=== PATIENT | female | born 2000 | race Hispanic/Latino ===

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

== ENCOUNTER 2020-01-26 20:30 | Emergency (ER) | payer OTHER | END 2020-01-26 22:29 | disposition home or self-care (01) | LOC: EDH 20:30 | DX: S83.004A Unspecified dislocation of right patella, initial encounter (principal); Z88.1 Allergy status to other antibiotic agents; X50.1XXA Overexertion from prolonged static or awkward postures, initial encounter; Y93.89 Activity, other specified; Y92.89 Other specified places as the place of occurrence of the external cause; Y99.9 Unspecified external cause status | CPT/HCPCS: 29505; 73562 ==

== ENCOUNTER 2020-03-03 05:06 | Emergency (ER) | payer OTHER ==
[2020-03-03] MEDS ORDERED: CEFTRIAXONE SODIUM 1 GM ONE (05:54)
[2020-03-03] MEDS ORDERED: ONDANSETRON ODT 4 MG TAB ONE (05:54)
[2020-03-03] MEDS ORDERED: LIDOCAINE HCL-MPF 1% 2ML VIAL ONE (05:54)
[2020-03-03] MEDS ORDERED: KETOROLAC TROMETHAMINE 60 MG/2 ML VIAL ONE (05:54)
== END 2020-03-03 06:13 | disposition home or self-care (01) ==
LOC: EDH 05:06
DX: N61.0 Mastitis without abscess (principal); Z88.1 Allergy status to other antibiotic agents; Z98.890 Other specified postprocedural states
CPT/HCPCS: 81025; 82948; 96372 ×2; 99284; J0696; J1885; J3490

== ENCOUNTER 2020-03-05 13:27 | Emergency (ER) | payer OTHER | END 2020-03-05 14:23 | disposition home or self-care (01) | LOC: EDH 13:27 | DX: Z48.00 Encounter for change or removal of nonsurgical wound dressing (principal); Z88.2 Allergy status to sulfonamides | CPT/HCPCS: 99281 ==

== ENCOUNTER → 2021-12-27 | Outpatient (CLI) | payer OTHER | END | disposition home or self-care (01) | LOC: RAH 11:05 | PROVIDERS: ATTEND Obstetrics & Gynecology | DX: R10.2 Pelvic and perineal pain (principal) | CPT/HCPCS: 76856 ==

== ENCOUNTER → 2022-01-24 | Outpatient (CLI) | payer OTHER ==
[2022-01-24 11:56] LABS: APPEARANCE,URINE Clear (CLEAR); BILIRUBIN,URINE Negative (NEGATIVE); COLOR,URINE Yellow (YELLOW); GLUCOSE, URINE (UA) Negative (NEGATIVE); KETONES,URINE Negative (NEGATIVE); LEUKOCYTE ESTERASE ,URINE Small (NEGATIVE); NITRATE,URINE Negative (NEGATIVE); OCCULT BLOOD,URINE Negative (NEGATIVE); PROTEIN,URINE Negative (NEGATIVE); UROBILINOGEN,URINE 0.2 mg/dL (0.2-1.0)
[2022-01-24 11:57] LABS: BASOPHILS % (AUTO) 0.3 % (0.0-5.0); EOSINOPHILS % (AUTO) 2.7 % (0.0-8.0); HEMATOCRIT 40.3 % (36-48); LYMPHOCYTES % (AUTO) 18.6 % (21.0-51.0); MEAN CORPUSCULAR HEMOGLOBIN 32.3 pg (27.0-33.0); MEAN CORPUSCULAR HGB CONC 34.5 g/dL (32.0-36.0); MEAN CORPUSCULAR VOLUME 93.5 fL (80-100); MONOCYTES % (AUTO) 7.5 % (3.0-13.0); NEUTROPHILS % (AUTO) 70.6 % (40.0-77.0); PLATELET COUNT (AUTO) 369 K/uL (130-400); RED BLOOD CELL COUNT(AUTO) 4.31 MIL/uL (4.00-5.50); RED CELL DISTRIBUTION WIDTH 12.1 % (11.0-15.5); WHITE BLOOD COUNT (AUTO) 7.7 K/uL (4.8-10.8)
[2022-01-24 12:15] LABS: BACTERIA,URINE Rare /HPF (None Seen); RBC,URINE None Seen /HPF (0-1); WBC,URINE 26-50 /HPF (0-1)
[2022-01-24 12:26] LABS: ALBUMIN 3.7 g/dL (3.5-5.0); BILIRUBIN,TOTAL 0.7 mg/dL (0.2-1.0); CREATININE 0.7 mg/dL (0.5-1.5); POTASSIUM 3.6 mmol/L (3.5-5.1); THYROID STIMULATING HORMONE 2.03 uIU/mL (0.36-3.74); TOTAL PROTEIN, SERUM 8.1 g/dL (6.0-8.3)
[2022-01-24 13:08] LABS: ERYTHROCYTE SEDIMENTATION RATE 36 MM/HR (0-20)
[2022-01-24 19:50] LABS: HEPATITIS B SURFACE ANTIGEN Non-Reactive (Negative)
[2022-01-24 21:19] LABS: HEPATITIS C ANTIBODY Non-Reactive (NEGATIVE)
[2022-01-25 10:59] LABS: RAPID PLASMA REAGIN NONREACTIVE (NONREACTIVE)
== END | disposition home or self-care (01) ==
LOC: LAB 10:00
PROVIDERS: ATTEND Nurse Practitioner Family
DX: I10 Essential (primary) hypertension (principal); R79.89 Other specified abnormal findings of blood chemistry; Z20.2 Contact with and (suspected) exposure to infections with a predominantly sexual mode of transmission
CPT/HCPCS: 36415; 80053; 80061; 81001; 82306; 84439; 84443; 85025; 85651; 86592; 86701; 87088; 87340; 87390; 87486; 87520; 87797

== ENCOUNTER 2025-02-16 17:34 | Emergency (ER) | payer OTHER ==
[~2025-02-16] VITALS: Ht 177.8 cm; Wt 104.3 kg
--- NOTE | 2025-02-16 17:40 | NUR ---
PT STATES WAS BITTEN BY PET CAT YESTERDAY, OCCURED AT [address], STATES CAT NOT VACCINATED
--- NOTE | 2025-02-16 17:44 | NUR ---
TC TO [facility], STATES WILL SEND OFFICER TO ER FOR REPORT
--- NOTE | 2025-02-16 17:49 | ERN ---
ED Note History of Present Illness Stated Complaint: LEFT HAND CAT BITE Chief Complaint: Animal Bite Time Seen by MD: 17:36 Time Seen by Midlevel: 17:36 Dictation: The patient is a healthy 24-year-old female with no significant medical history hand pain after she was bitten by her cat yesterday. Patient reports she cleaned her wound immediately after. Reports CT not up-to-date with vaccines. Patient reports being up-to-date with tetanus in the last three years. Patient denies any fevers. Allergies: Coded Allergies: sulfamethoxazole (Unverified Allergy, Unknown, 11/24/19) trimethoprim (Unverified Allergy, Unknown, 11/24/19) Home Meds Active Scripts Amoxicillin/Potassium Clav (Amox Tr-K Clv 875-125 mg Tab) 875 Mg-125 Mg Tablet, 1 TAB PO BID for 10 Days, #20 TAB 0 Refills Prov:NICOLE KOLB [employer] 02/16/25 Past Medical History Past Medical History: No Pertinent History Surgical History: Other Surgical History Other: RT KNEE LMP: February 10, 2025 RN Note Reviewed/Agreed w/PFSH: Yes Review of System Dictation Constitutional: Negative for fever,chills, and weight loss Eyes: Negative for injury, pain,redness, and discharge ENT: Negative for injury,pain or swelling Cardiovascular: Negative for chest pain, palpitations, and edema Respiratory: Negative for shortness of breath, cough, and wheezing, Abdomen/GI: Negative for abdominal pain, nausea, vomiting, diarrhea, and constipation Back: Negative for injury and pain : Negative for injury, bleeding and discharge MS/Extremity: Negative for injury and deformity Skin: Negative for rash, and discoloration positive for cat bite Neuro: Negative for headache, weakness, numbness, tingling, and seizure Psych: Negative for suicide ideation, homicidal ideation, and hallucinations Initial Vital Sign VS Vital Signs Date Time Temp Pulse Resp B/P (MAP) Pulse Ox O2 Delivery O2 Flow Rate FiO2 02/16/25 17:35 98.6 85 16 125/69 100 Room Air 0 Physical Exam Dictation Vital Signs reviewed General Appearance: Alert, oriented x 3, no acute distress, well developed, nourished. Head and Face: non-traumatic. Eyes: PERRL, pink conjunctivas, eyelid no trauma, anterior chamber with arcus senilis. Ears: Pinnas intact and no signs of trauma or erythema ear canals clear and no discharge TM no erythema Nose: No discharge, no bleeding. Oropharynx: Mouth normal, tongue pink. pharynx clear,no erythema, tonsils no exudates, no abscesses noted, mucous membrane moist Neck: Supple, non-tender, no thyromegaly, no masses, no JVD, no bruits Breast:Deferred Chest:No tenderness, no crepitus, no paradoxical movement, no retractions Lungs:Clear, well-ventilated, symmetric, no rales, no wheezing, no rhonchi, no stridor, good breath sounds bilaterally Heart: Regular rate, regular rhythm, no murmur, no gallops Vascular: no peripheral edema, Abdomen: Soft, positive bowel sounds, nondistended, no guarding, nontender, no rebound, no masses no hepatomegaly, no splenomegaly, no Price's sign, no hernias. Rectal: Deferred Genital: Deferred Neurological: Normal speech, motor function intact, sensory function intact Musculoskeletal: Neck nontender, full range of motion, back nontender, full range of motion, Extremities: nontender, full range of motion Skin: Color pink, dry, no turgor, no rash, no lacerations, no abrasions, no contusions. Small puncture wound to lateral aspect of dorsal left hand, scabbing noted, slight erythema surrounding by, no active bleeding, no discharge, mild swelling Lymphatic: Deferred Results (Laboratory/Radiology) Labs Reviewed?: Yes ED Course ED Course Orders Procedure Category Date Status Time *Nursing CPOE 02/16/25 Transmitted Communication: 17:44 Amox/Clav 875/125mg PHA 02/16/25 Complete Tab (Augmentin 875-1 18:00 Current Medications Medications (Trade) Dose Ordered Sig/Evangelist Route PRN Reason Start Time Stop Time Status Last Admin Dose Admin Amoxicillin/ Clavulanate Potassium (Augmentin 875-125 Tablet) 1 each ONCE ONCE PO 02/16/25 18:00 02/16/25 18:01 DC 02/16/25 18:02 Vital Signs Date Time Temp Pulse Resp B/P (MAP) Pulse Ox O2 Delivery O2 Flow Rate FiO2 02/16/25 17:35 98.6 85 16 125/69 100 Room Air 0 Medical Decision Making MDM The patient is a healthy 24-year-old female with no significant medical history hand pain after she was bitten by her cat yesterday. Patient reports she jamie aned her wound immediately after. Reports CT not up-to-date with vaccines. Patient reports being up-to-date with tetanus in the last three years. Patient denies any fevers. Patient with puncture wound to the left dorsal aspect of the hand, no drainage o r active bleeding. Slight erythema surrounding area. Patient is up-to-date with tetanus. We will be giving Augmentin for the treatment of cat bite. Animal control has also been notified to monitor patient's Cat. On physical exam patient is in no acute distress, nontoxic appearance, afebrile and stable vital signs. Patient instructed to follow up with the PCP and animal control. Patient instructed to return if redness and swelling worsened, if she develops any fevers. Differential diagnosis: Cat bite, cellulitis, abscess Need for hospitalization: Patient does not meet criteria for hospitalization. There are no social concerns with this patient. DX & DISP Disposition: Discharge Departure Impression: Primary Impression: Cat bite of left hand Condition: Stable Scripts Amoxicillin/Potassium Clav (Amox Tr-K Clv 875-125 mg Tab) 875 Mg-125 Mg Tablet 1 TAB PO BID for 10 Days, #20 TAB 0 Refills Prov: NICOLE KOLB [facility] 02/16/25 Additional Instructions: Please follow up with your primary doctor in 1-2 days. Monitor your wound and a if redness spreads, you develop fevers, you develop severe pain or swelling please return to ER. Follow up with animal control. FOLLOW-UP WITH PRIMARY CARE PROVIDER IN 1 TO 2 DAYS. TAKE MEDICATIONS DIRECTED HERE IN THE EMERGENCY ROOM. OKAY TO CONTINUE HOME MEDICATIONS UNLESS OTHERWISE DISCUSSED DURING YOUR VISIT IN THE EMERGENCY ROOM TODAY. RETURN TO YOUR NEAREST EMERGENCY ROOM IF SYMPTOMS WORSEN OR IF THERE IS NO IMPROVEMENT. CALL 911 IF YOU NEED IMMEDIATE ASSISTANCE. TAKE TYLENOL OR MOTRIN [id number] NEEDED AND IF NO CONTRAINDICATIONS ARE PRESENT. INCREASE O RAL HYDRATION. A WOUND CULTURE OR URINE CULTURE WAS ORDERED HERE IN THE EMERGENCY ROOM DEPARTMENT PLEASE FOLLOW-UP WITH PRIMARY CARE PROVIDER AND ADVISE THEM TO GET REPEAT PORTS FROM OUR FACILITY. IF YOU HAD ANY TALA WRAP/SPLINTS THAT WERE APPLIED HERE, PLEASE DO NOT REMOVE THEM UNTIL YOU SEE YOUR PRIMARY CARE OR SPECIALTY. Referrals: JERRICA MCDONALD (PCP) Time of Disposition: 18:13 I have reviewed the case, and I agree with, Diagnosis and Plan NICOLE KOLB [facility] February 16, 2025 17:49
[2025-02-16] MEDS ORDERED: AMOX1TAB16 PO (17:51)
[2025-02-16] MEDS: AMOX/CLAV 875/125MG TAB PO ONE (18:02)
--- NOTE | 2025-02-16 18:26 | NUR ---
JACY KEATING [id number] INCIDENT NUMBER [id number]
[2025-02-16 18:34] VITALS: BP 121/65; PULSE 80; RESP 16; TEMP 98.6; O2SAT 100
== END 2025-02-16 18:35 | disposition home or self-care (01) ==
LOC: EDH 17:34
DX: S61.432A Puncture wound without foreign body of left hand, initial encounter (principal); Z88.1 Allergy status to other antibiotic agents; Z88.2 Allergy status to sulfonamides; W55.01XA Bitten by cat, initial encounter; Y93.89 Activity, other specified; Y92.89 Other specified places as the place of occurrence of the external cause; Y99.8 Other external cause status
CPT/HCPCS: 99283